=== PATIENT | female | born 1980 | race African-American/Black ===

== ENCOUNTER 2020-03-01 14:00 | Emergency (ER) | payer OTHER ==
[~2020-03-01] VITALS: Ht 144.8 cm; Wt 59.0 kg
[2020-03-01 14:11] VITALS: Ht 144.8 cm; Wt 59.0 kg
[2020-03-01 16:28] VITALS: BP 159/93
== END 2020-03-01 16:28 | disposition home or self-care (01) ==
LOC: ED 14:00
DX: S29.012A Strain of muscle and tendon of back wall of thorax, initial encounter (principal); I10 Essential (primary) hypertension; Z88.5 Allergy status to narcotic agent; W19.XXXA Unspecified fall, initial encounter; Y93.89 Activity, other specified; Y92.89 Other specified places as the place of occurrence of the external cause; Y99.8 Other external cause status
CPT/HCPCS: J1100; J1885; Q0092